=== PATIENT | male | born 1945 | race Asian ===

== ENCOUNTER 2025-03-24 07:13 | Day surgery (SDC) | payer MEDICARE, OTHER ==
[~2025-03-24] VITALS: Ht 167.6 cm; Wt 70.5 kg
[~2025-03-24 07:13] MED LIST: ALBU18HF12 IH; ATOR20TA65 PO; CETI10TA58 PO; FLUT16H NASAL; FLUT1BLS3 IH; GABA-1181 PO; LOSA100T59 PO; MONT-40 PO; ROFL500T9 PO; SODIUM CHLORIDE 0.9% 1,000 ML ONE
[2025-03-24] MEDS ORDERED: ALBUTEROL SULFATE 2.5 MG/0.5 ML NEB SOLUTION NEB ONE (07:14)
[2025-03-24] MEDS ORDERED: LIDOCAINE 4% 50 ML SOLUTION TP ONE (07:14)
[2025-03-24] MEDS ORDERED: LIDOCAINE 2% 11 ML JELLY TP ONE (07:14)
[2025-03-24] MEDS ORDERED: BENZOCAINE 20% 50 MCG/SPRAY 57 GM TP ONE (07:14)
[2025-03-24] MEDS ORDERED: FentaNYL CITRATE PF 100 MCG/2 ML VIAL ONE (08:09)
[2025-03-24] MEDS ORDERED: MIDAZOLAM HCL 2 MG/2 ML VIAL ONE (08:09)
[2025-03-24] MEDS: SODIUM CHLORIDE 0.9% 1,000 ML IV ONE (08:14)
[2025-03-24 09:50] VITALS: PULSE 77; RESP 18; O2SAT 99
[2025-03-24] MEDS ORDERED: MethylPREDNISolone SOD SUCC 125 MG/2 ML VIAL ONE (10:02)
[2025-03-24] MEDS: MethylPREDNISolone SOD SUCC 125 MG/2 ML VIAL IVP ONE (10:33)
== END 2025-03-24 15:05 | disposition home or self-care (01) ==
LOC: SURGERY 07:13
PROVIDERS: ATTEND Internal Medicine Critical Care Medicine
DX: R05.3 Chronic cough (principal); J38.4 Edema of larynx; B37.0 Candidal stomatitis; I10 Essential (primary) hypertension; J45.909 Unspecified asthma, uncomplicated; Z79.899 Other long term (current) drug therapy
CPT/HCPCS: 31623; 87206; 87101; 87220; 87070; 87186; 31624; 71045; 87015; J3010; J2250; J2919; J7030; 88108; J7613; Z7610